=== PATIENT | male | born 1990 | race Caucasian/White ===

== ENCOUNTER 2017-08-24 13:18 | Emergency (ER) | payer OTHER ==
[~2017-08-24] VITALS: Ht 188 cm; Wt 73.5 kg
[2017-08-24] MEDS ORDERED: TETRACAINE HCL 0.5% OPTH SOLN 4 ML BTL OP ONE (13:45)
[2017-08-24] MEDS ORDERED: ACETAMINOPHEN 325 MG TAB PO ONE (13:45)
[2017-08-24 14:16] VITALS: BP 126/65
== END 2017-08-24 14:10 | disposition home or self-care (01) ==
LOC: FSED 13:18
DX: H57.12 Ocular pain, left eye (principal); S05.02XA Injury of conjunctiva and corneal abrasion without foreign body, left eye, initial encounter; F17.210 Nicotine dependence, cigarettes, uncomplicated
CPT/HCPCS: 99283

== ENCOUNTER 2017-12-03 10:52 | Emergency (ER) | payer OTHER ==
[~2017-12-03] VITALS: Ht 188 cm; Wt 69.9 kg
[2017-12-03 11:30] VITALS: BP 128/76
== END 2017-12-03 11:54 | disposition home or self-care (01) ==
LOC: FSED 10:52
DX: L03.116 Cellulitis of left lower limb (principal); J45.909 Unspecified asthma, uncomplicated
CPT/HCPCS: 99283